=== PATIENT | female | born 1975 | race Caucasian/White ===

== ENCOUNTER 2017-01-17 15:32 | Emergency (ER) | payer MEDICAID ==
[2017-01-17 15:37] VITALS: BP 141/103
== END 2017-01-17 17:26 | disposition home or self-care (01) ==
LOC: ED 15:32
DX: L29.9 Pruritus, unspecified (principal); R03.0 Elevated blood-pressure reading, without diagnosis of hypertension

== ENCOUNTER 2017-02-19 23:26 | Emergency (ER) | payer MEDICAID ==
[2017-02-19 23:51] VITALS: BP 128/93
== END 2017-02-20 01:27 | disposition left against medical advice (07) ==
LOC: ED 23:26
DX: L29.9 Pruritus, unspecified (principal); F41.9 Anxiety disorder, unspecified

== ENCOUNTER 2018-04-20 13:30 | Emergency (ER) | payer MEDICAID ==
[~2018-04-20] VITALS: Ht 180.3 cm; Wt 81.6 kg
[2018-04-20 13:31] VITALS: BP 132/82; Ht 180.3 cm; Wt 81.6 kg
== END 2018-04-20 15:13 | disposition left against medical advice (07) ==
LOC: ED 13:30
DX: Z53.21 Procedure and treatment not carried out due to patient leaving prior to being seen by health care provider (principal)

== ENCOUNTER 2018-04-20 18:25 | Emergency (ER) | payer MEDICAID ==
[~2018-04-20] VITALS: Ht 180.3 cm; Wt 80.7 kg
[2018-04-20 18:50] VITALS: Ht 180.3 cm; Wt 80.7 kg
[2018-04-20 20:43] VITALS: BP 147/109
== END 2018-04-20 20:43 | disposition home or self-care (01) ==
LOC: ED 18:25
DX: M79.652 Pain in left thigh (principal); F41.9 Anxiety disorder, unspecified; F32.9 Major depressive disorder, single episode, unspecified

== ENCOUNTER 2018-04-21 01:32 | Emergency (ER) | payer MEDICAID ==
[~2018-04-21] VITALS: Ht 180.3 cm; Wt 80.7 kg
[2018-04-21 01:54] VITALS: Ht 180.3 cm; Wt 80.7 kg
[2018-04-21 07:20] VITALS: BP 134/80
== END 2018-04-21 07:20 | disposition home or self-care (01) ==
LOC: ED 01:32
DX: R21 Rash and other nonspecific skin eruption (principal); R03.0 Elevated blood-pressure reading, without diagnosis of hypertension; F41.9 Anxiety disorder, unspecified; F32.9 Major depressive disorder, single episode, unspecified

== ENCOUNTER 2018-04-21 12:44 | Emergency (ER) | payer MEDICAID ==
[~2018-04-21] VITALS: Ht 180.3 cm; Wt 80.3 kg
[2018-04-21 12:46] VITALS: Ht 180.3 cm; Wt 80.3 kg
[2018-04-21 14:44] VITALS: BP 121/80
== END 2018-04-21 14:44 | disposition home or self-care (01) ==
LOC: ED 12:44
DX: L30.9 Dermatitis, unspecified (principal); F41.9 Anxiety disorder, unspecified; F32.9 Major depressive disorder, single episode, unspecified